=== PATIENT | female | born 1975 | race Caucasian/White ===

== ENCOUNTER → 2017-05-22 | Outpatient (CLI) | payer OTHER | LOC: CIMAGING 12:19 | PROVIDERS: ATTEND Family Medicine | DX: Z12.31 Encounter for screening mammogram for malignant neoplasm of breast (principal) | CPT/HCPCS: G0202 ==

== ENCOUNTER → 2017-05-29 | Outpatient (CLI) | payer OTHER | LOC: FIMAGING 13:00 | PROVIDERS: ATTEND Family Medicine | DX: R92.8 Other abnormal and inconclusive findings on diagnostic imaging of breast (principal) | CPT/HCPCS: G0206 ==

== ENCOUNTER → 2017-08-28 | Outpatient (CLI) | payer OTHER | LOC: CIMAGING 12:45 | PROVIDERS: ATTEND Physical Medicine & Rehabilitation | DX: M79.631 Pain in right forearm (principal); M25.521 Pain in right elbow | CPT/HCPCS: 73080-PO; 73090-PO ==

== ENCOUNTER 2017-10-06 18:32 | Emergency (ER) | payer OTHER ==
[2017-10-06 18:37] VITALS: RESP 16
--- NOTE | 2017-10-06 18:52 | EDPHY ---
H & P Stated Complaint: cp - Personal History LMP (Females 10-55): 8-14 Days Ago Current Tetanus Diphtheria and Acellular Pertussis (TDAP): Yes - Medical/Surgical History Other PMH: ruptured liver,vel - Social History Smoking Status: Never smoked Time Seen by Provider: 10/06/17 18:52 Constitutional: Initial Vital Signs Temperature (C) 36.6 C 10/06/17 18:35 Heart Rate 60 10/06/17 18:35 Respiratory Rate 16 10/06/17 18:35 Blood Pressure 159/85 H 10/06/17 18:35 O2 Sat (%) 94 10/06/17 18:35 O2 Delivery Mode Room Air Allergies/Adverse Reactions: No Known Allergies Allergy (Unverified 10/06/17 18:35) Home Medications: Medication Instructions Recorded NK [No Known Home Meds] 10/06/17 Medical Decision Making - Diagnostics Imaging: Discussed imaging studies w/ clothing cutter Radiologist, I viewed and interpreted images myself - Diagnostics Imaging Results: Imaging Impressions Chest X-Ray 10/06/17 19:36 Impression: Negative except for mild airways disease. ED Course/Re-evaluation: CHIEF COMPLAINT: Chest pain HISTORY OF PRESENT ILLNESS: The patient is a 41 y/o female complaining of intermittent chest pain and left arm tingling onset about 4 hours ago. She has a history of acid reflux and states her symptoms today feel different. She describes her pain as "stabbing" in quality and worse with palpation. She denies associated dyspnea, nausea, vomiting, lightheadedness, fever, recent illness, or recent trauma. She had an EBCT heart scan 3 years ago that showed a calcium score of zero. No personal or family history of cardiac disease, respiratory disease, diabetes, hypercholesterolemia, or hypertension. REVIEW OF SYSTEMS: A 10 point review of systems was performed and is negative with the exception of the elements mentioned in the history of present illness. PHYSICAL EXAM: HR, BP, O2 Sat, RR. Temp noted General Appearance: Alert, well hydrated, appropriate, and non-toxic appearing. Head: Atraumatic without scalp tenderness or obvious injury Eyes: Pupils equal, round, reactive to light and accommodation, EOMI, no trauma , no injection. Nose: Atraumatic, no rhinorrhea, clear. Throat: There is no erythema or exudates, no lesions, normal tonsils, mucus membranes moist. Neck: Supple, nontender, no lymphadenopathy. Respiratory: No retractions, no distress, no wheezes, and no accessory muscle use. Lungs are clear to auscultation bilaterally. Cardiovascular: Regular rate and rhythm, no murmurs, rubs, or gallops. Good capillary refill all extremities. Chest: Mild tenderness below left clavicle to palpation. Gastrointestinal: Abdomen is soft, nontender, non-distended, no masses, no rebound, no guarding, no peritoneal signs. Musculoskeletal: Normal active ROM of all extremities, atraumatic. Neurological: Alert, appropriate, and interactive. The patient has non-focal cranial nerves, motor, sensory, and cerebellar exam. Skin: No rashes, good turgor, no nodules on palpation. Past medical history: Bradycardia, acid reflux Past surgical history: Noncontributory Family history: No cardiac disease history Social history: Works at [employer]. Nonsmoker. Reviewed prior medical records including EBCT from 2013 and lipid panel 2015. DIAGNOSTICS/PROCEDURES/CRITICAL CARE TIME: The 12 lead EKG was interpreted by myself. Sinus mechanism. See hard copy and/ or "tracemaster" electronic copy for interpretation. Chest x-ray: negative DIFFERENTIAL DIAGNOSIS: The differential diagnosis for the patient's chest pain included but was not limited to myocardial ischemia, pulmonary embolus, chest wall pain, pleural inflammation, and pulmonary infectious causes. MEDICAL DECISION MAKING: This is a 41 y/o female with a history of acid reflux and bradycardia who presents with a 4-hour history of intermittent left-sided chest pain. Her pain is reproducible to palpation underneath her left clavicle. Due to a calcium score of 0 on EBCT in 2013 and great lipid panel in 2015, using the WHITING 10- year CHD Risk with Coronary Artery Calcification her 10-year estimated risk for a CHD event is less than 0.9%. Plan for IV, labs, EKG, chest x-ray. Chest x-ray, EKG, and labs are unremarkable with exception of elevated d-dimer. Chest CTA ordered to rule out PE. (Pacheco Hilario) Other Provider: CT angiography of the chest is normal per Dr. Navarro at 9:11 p.m.. Then as per Dr. Hilario instructions patient is discharged, diagnosis of chest pain. CT results discussed with the patient. (Jacinto,Hernan S) - Data Points Laboratory Results: Laboratory Results 10/06/17 18:50 10/06/17 18:50 10/06/17 10/06/17 10/06/17 18:50 18:50 18:50 WBC 7.40 10^3/uL 10^3/uL (3.80-9.50) RBC 4.28 10^6/uL 10^6/uL (4.18-5.33) Hgb 13.5 g/dL g/dL (12.6-16.3) Hct 40.0 % % (38.0-47.0) MCV 93.5 fL fL (81.5-99.8) MCH 31.5 pg pg (27.9-34.1) MCHC 33.8 g/dL g/dL (32.4-36.7) RDW 12.4 % % (11.5-15.2) Plt Count 187 10^3/uL 10^3/uL (150-400) MPV 12.3 fL H fL (8.7-11.7) Neut % (Auto) 63.7 % % (39.3-74.2) Lymph % (Auto) 27.8 % % (15.0-45.0) [place] % (Auto) 5.5 % % (4.5-13.0) Eos % (Auto) 2.2 % % (0.6-7.6) Baso % (Auto) 0.7 % % (0.3-1.7) Nucleat RBC Rel Count 0.0 % % (0.0-0.2) Absolute Neuts (auto) 4.71 10^3/uL 10^3/uL (1.70-6.50) Absolute Lymphs (auto) 2.06 10^3/uL 10^3/uL (1.00-3.00) Absolute Monos (auto) 0.41 10^3/uL 10^3/uL (0.30-0.80) Absolute Eos (auto) 0.16 10^3/uL 10^3/uL (0.03-0.40) Absolute Basos (auto) 0.05 10^3/uL 10^3/uL (0.02-0.10) Absolute Nucleated RBC 0.00 10^3/uL 10^3/uL (0-0.01) Immature Gran % 0.1 % % (0.0-1.1) Immature Gran # 0.01 10^3/uL 10^3/uL (0.00-0.10) D-Dimer 0.74 ug/mLFEU H ug/mLFEU (0.00-0.50) Sodium 139 mEq/L mEq/L (134-144) Potassium 4.6 mEq/L mEq/L (3.5-5.2) Chloride 104 mEq/L mEq/L (97-110) Carbon Dioxide 27 mEq/l mEq/l (22-31) Anion Gap 8 mEq/L mEq/L (8-16) BUN 16 mg/dL mg/dL (7-23) Creatinine 0.8 mg/dL mg/dL (0.6-1.0) Estimated GFR > 60 Glucose 93 mg/dL mg/dL (70-100) Calcium 9.8 mg/dL mg/dL (8.5-10.4) Troponin I < 0.012 ng/mL ng/mL (0.000-0.034) Departure - Departure Disposition: Home, Routine, Self-Care Clinical Impression: Chest pain Qualifiers: Chest pain type: other chest pain Qualified Code(s): R07.89 - Other chest pain Condition: Good Instructions: Chest Pain (ED) Referrals: Annemarie Tenorio MD [Primary Care Provider] - As per Instructions Report Scribed for: Pacheco Hilario Report Scribed by: Octavia London Date of Report: 10/06/17 Time of Report: 18:56
--- NOTE | 2017-10-06 18:58 | CPEKG ---
Heart Rate: 51 RR Interval: 1176 P-R Interval: 168 QRSD Interval: 104 QT Interval: 416 QTC Interval: 384 P Bethel: 38 QRS [place]: -22 T Wave [place]: -7 EKG Severity - ABNORMAL ECG - EKG Impression: SINUS ARRHYTHMIA, RATE 44-59 EKG Impression: BORDERLINE LEFT AXIS DEVIATION EKG Impression: NONSPECIFIC T ABNORMALITIES, INFERIOR LEADS Electronically Signed By: Pacheco Hilario 06-Oct-2017 19:48:46
[2017-10-06 19:53] LABS: ANION GAP 8 mEq/L (8-16); CALCIUM 9.8 mg/dL (8.5-10.4); CARBON DIOXIDE 27 mEq/l (22-31); CHLORIDE 104 mEq/L (97-110); CREATININE 0.8 mg/dL (0.6-1.0); GLOMERULAR FILTRATION RATE > 60; GLUCOSE 93 mg/dL (70-100); POTASSIUM 4.6 mEq/L (3.5-5.2); SODIUM 139 mEq/L (134-144)
[2017-10-06 19:56] LABS: % IMMATURE GRANULYOCYTES 0.1 % (0.0-1.1); ABSOLUTE IMMATURE GRANULOCYTES 0.01 10^3/uL (0.00-0.10); ADD DIFF? NO; ADD MORPH? NO; ADD SCAN? NO; ATYPICAL LYMPHOCYTE FLAG 0 (0-99); FRAGMENT RBC FLAG 0 (0-99); HEMOGLOBIN 13.5 g/dL (12.6-16.3); LEFT SHIFT FLG 0 (0-99); LIPEMIA HEMOLYSIS FLAG 90 (0-99); MEAN CELL HEMOGLOBIN 31.5 pg (27.9-34.1); MEAN CELL HEMOGLOBIN CONCENTR. 33.8 g/dL (32.4-36.7); MEAN CELL VOLUME 93.5 fL (81.5-99.8); MEAN PLATELET VOLUME 12.3 fL (8.7-11.7); PLATELET CLUMPS FLAG 10 (0-99); PLATELET COUNT 187 10^3/uL (150-400); RED BLOOD CELL COUNT 4.28 10^6/uL (4.18-5.33); RED CELL DISTRIBUTION WIDTH 12.4 % (11.5-15.2)
[2017-10-06 20:03] LABS: TROPONIN I < 0.012 ng/mL (0.000-0.034)
[2017-10-06] MEDS ORDERED: IOPAMIDOL (ISOVUE 370) 100 ML BTL IV ONE (20:38)
[2017-10-06 20:43] VITALS: O2SAT 95
[2017-10-06 21:30] VITALS: BP 128/86; PULSE 66; TEMP 97.7
== END 2017-10-06 21:28 | disposition home or self-care (01) ==
DX: R07.89 Other chest pain (principal)
CPT/HCPCS: Q9967

== ENCOUNTER → 2018-03-31 | Outpatient (CLI) | payer OTHER | LOC: CIMAGING 13:46 | PROVIDERS: ATTEND Physical Medicine & Rehabilitation | DX: M25.761 Osteophyte, right knee (principal) | CPT/HCPCS: 73564-PO ==

== ENCOUNTER → 2018-07-09 | Outpatient (CLI) | payer OTHER | LOC: CIMAGING 14:17 | PROVIDERS: ATTEND Family Medicine | DX: Z12.31 Encounter for screening mammogram for malignant neoplasm of breast (principal) ==